=== PATIENT | male | born 1960 | race Caucasian/White ===

== ENCOUNTER → 2016-12-23 | Outpatient (CLI) | payer MEDICARE ==
[~2016-12-23] MED LIST: ALBU0.425 IH
--- NOTE | 2016-12-23 12:47 | DI ---
Indication: ITS.REASON: K74.60 CIRRHOSIS PROCEDURE: US LIVER (HEPATIC): Encounter: Initial Comparison: None Technique: Grayscale and color Doppler sonographic imaging of the right upper quadrant of the abdomen was performed. Findings: Hepatic parenchyma is homogeneous without evidence for focal mass. The gallbladder demonstrates multiple mobile echogenic gallstones. The gallbladder wall thickness is normal at 2.7 mm. No definite gallbladder wall thickening, no pericholecystic fluid, no sonographic Wall's sign. Both the intra and extrahepatic biliary system are of normal caliber with the common duct measuring 4.9 mm in dimension. Visualized portions of the head and body of the pancreas are unremarkable. The right kidney is present without collecting system dilatation. The right kidney measures 12.7 cm in length. Impression: Cholelithiasis without evidence for cholecystitis. No sonographic Wall's sign to suggest acute cholecystitis. .
== END ==
LOC: IMA 08:04
PROVIDERS: ATTEND Internal Medicine
DX: K80.20 Calculus of gallbladder without cholecystitis without obstruction (principal); K74.60 Unspecified cirrhosis of liver